=== PATIENT | male | born 1955 | race Caucasian/White ===

== ENCOUNTER 2022-07-11 12:16 | Outpatient (CLI) | payer MEDICARE ==
[~2022-07-11] VITALS: Ht 175.3 cm; Wt 92.4 kg
[~2022-07-11 12:16] MED LIST: ASP81TEC PO; IBUP-30 PO; MOVE FREE PO; MULT-608 PO; OMEG-12 PO; OXYC-12 PO; PNT40TEC PO
[2022-07-11] MEDS ORDERED: KRIL500C PO (13:34)
[2022-07-11] MEDS ORDERED: MULT-593 PO (13:34)
[2022-07-11] MEDS ORDERED: ASPI-1238 PO (13:34)
== END 2022-07-11 13:42 ==
LOC: PREOP 12:16
PROVIDERS: ATTEND Surgery
DX: Z01.818 Encounter for other preprocedural examination (principal); Z12.11 Encounter for screening for malignant neoplasm of colon

== ENCOUNTER 2022-07-12 11:39 | Day surgery (SDC) | payer MEDICARE ==
[~2022-07-12] VITALS: Ht 165.1 cm; Wt 92.4 kg
[~2022-07-12 11:39] MED LIST changes: +ASPI-1238 PO; +KRIL500C PO; +MULT-593 PO
[2022-07-12] MEDS ORDERED: LACTATED RINGERS 1,000 ML IV STA (11:59)
[2022-07-12 12:00] VITALS: BP 154/78
[2022-07-12] MEDS ORDERED: LIDOCAINE JELLY 2% 6 ML SYRINGE MM PRN (12:00)
[2022-07-12] MEDS ORDERED: ONDANSETRON 4 MG/2 ML (SDV) Z0FRAN IVP PRN (13:15)
[2022-07-12] MEDS ORDERED: ONDANSETRON 4 MG (ZOFRAN) ORAL DISSOLVE TAB PO PRN (13:15)
--- NOTE | 2022-07-12 13:15 | Progress Note-Pre Operative ---
Pre-Operative Progress Note Date of Available H&P: Jul 12, 2022 Date H&P Reviewed: Jul 12, 2022 Time H&P Reviewed: 12:30 History & Physical: No changes noted Pre-Operative Diagnosis: screening o AMMY NIETO MD Jul 12, 2022 13:15
--- NOTE | 2022-07-12 13:16 | Discharge Inst-Surgical ---
D/C Lap Instructions-GERSON Follow Up Activity as tolerated High Fiber Diet 25g or more per day Avoid Alcohol, Caffeine, Spicy [place] and Acid foods. Drink 64 fluid oz or more of fluids per day. Symptoms to Report: Fever over 101 degree F, Nausea/Vomiting If any problems/questions: Contact your physician or go to Emergency Room AMMY NIETO MD Jul 12, 2022 13:16
[2022-07-12] MEDS ORDERED: PROPOFOL INJECTION 50 ML IV ONE (14:24)
[2022-07-12 15:20] VITALS: BP 134/59
[2022-07-12 15:25] VITALS: BP 126/60
--- NOTE | 2022-07-12 15:25 | Progress Note-Post Operative ---
Post-Operative Progess Note Surgeon (s)/[employer] Specialist (s) Surgeon AMMY NIETO MD [employer] Specialist: none Pre-Operative Diagnosis screening colo Post-Operative Diagnosis chronic stage 2-3 ext and int hemorrhoids, small HP rectum(2mm) Procedure & Operative Findings Date of Procedure 07/12/22 Procedure Performed/Findings colonoscopy with bx. Anesthesia Type mac Estimated Blood Loss Estimated blood loss (mL): minimal Specimens/Packing Specimens Removed rectal polyp AMMY NIETO MD Jul 12, 2022 15:25
[2022-07-12 15:30] VITALS: BP 125/80
[2022-07-12 15:49] VITALS: BP 125/80
--- NOTE | 2022-07-12 16:15 | Anesthesia-General Post-Op ---
MAC Patient Condition Mental Status/LOC: Same as Preop Cardiovascular: Satisfactory Nausea/Vomiting: Absent Respiratory: Satisfactory Pain: Controlled Complications: Absent Post Op Complications Complications None Follow Up Care/Instructions Patient Instructions None needed. Anesthesiology Discharge Order Discharge Order Patient is doing well, no complaints, stable vital signs, no apparent adverse anesthesia problems. No complications reported per nursing. JAYANT VEGA CRNA Jul 12, 2022 16:15
--- NOTE | 2022-07-13 02:25 | OPERATIVE REPORT ---
DATE OF SERVICE: 07/12/2022 ATTENDING PRIMARY CARE PHYSICIAN: Ramirez Webb MD PREOPERATIVE DIAGNOSIS: Screening colonoscopy. POSTOPERATIVE DIAGNOSIS: Chronic between stage II and III external and internal hemorrhoids, small polyp of the rectum approximately 2 mm in size. PROCEDURE: Colonoscopy with polypectomy with hot biopsy forceps. SURGEON: Ammy Nieto MD ANESTHESIA: Monitored anesthesia care. ESTIMATED BLOOD LOSS: Minimal. FINDINGS: Chronic between stage II and III external and internal hemorrhoids, small polyp of the rectum approximately 2 mm in size. DISPOSITION: The patient tolerated the procedure well. INDICATIONS: The patient is a 56-year-old male known to us. We had done a laparoscopic cholecystectomy on him as well as a right inguinal hernia repair. We had also done his last colonoscopy in 09/2011 and was found to have hemorrhoids as well as a very mild sigmoid diverticulosis. He states that he is otherwise doing well. Does not report any major issues with diarrhea, nor constipation as well as no red blood per rectum, nor any dark tarry stools. He also does not report any family history of colon cancer. DESCRIPTION OF PROCEDURE: The patient was brought to the endoscopy suite and laid in the left lateral decubitus position. After adequate IV pain and sedative medications and monitored anesthesia care, a digital rectal examination was performed which revealed chronic between stage II and III external and internal hemorrhoids, not actively edematous, noninflamed and no bleeding. Normal sphincter tone itself and there are no palpable masses. Prostate gland was palpable and appeared normal. The endoscope was then intubated into the anus, rectum and gently insufflated. The endoscope was then advanced through the first valve of [place] in the rectum where a small polyp approximately 2 mm in size was identified. This was biopsied and destroyed with forceps and electrocautery with visualization of good hemostasis. The endoscope was then advanced through the sigmoid colon where no significant diverticulosis identified. We then proceeded with the remainder of the descending, transverse and ascending colon to the cecum, which were normal. There were no other lesions identified. The endoscope was then slowly withdrawn while taking a second look and suctioning all residual air with no additional findings. The patient tolerated the procedure well. We will recommend continued medical management with a high fiber diet with at least 30 grams of fiber daily as well as significant amounts of water to promote soft stools on a daily basis. If he is asymptomatic, he does not need another colonoscopy for another 10 years. Job ID: [id number] DocumentID: [id number] Dictated Date: 07/12/2022 15:20:12 Percolator Operator Date: 07/13/2022 02:24:00 Dictated By: AMMY NIETO MD
== END 2022-07-12 15:54 | disposition home or self-care (01) ==
LOC: ENDO 11:39
PROVIDERS: ATTEND Surgery
DX: Z12.11 Encounter for screening for malignant neoplasm of colon (principal); K51.40 Inflammatory polyps of colon without complications; K64.2 Third degree hemorrhoids; K64.4 Residual hemorrhoidal skin tags